=== PATIENT | male | born 1960 | race African-American/Black ===

== ENCOUNTER 2021-12-24 12:00 | Inpatient (IN) | payer OTHER ==
[2021-12-24 13:43] VITALS: BMI 25.1
[2021-12-24] MEDS ORDERED: BENZOCAINE/MENTHOL (CHLORASEPTIC ) LOZENGE MM PRN (14:42)
[2021-12-24] MEDS ORDERED: LOPERAMIDE HCL 2 MG CAPSULE PO PRN (14:42)
[2021-12-24] MEDS ORDERED: MAGNESIUM CITRATE 300 ML BOTTLE PO PRN (14:42)
[2021-12-24] MEDS ORDERED: ONDANSETRON *ODT* 4 MG TABLET SL PRN (14:42)
[2021-12-24] MEDS ORDERED: chlordiazePOXIDE HCL 25 MG CAPSULE PO PRN (14:42)
[2021-12-24] MEDS ORDERED: DICYCLOMINE HCL 10 MG CAPSULE PO PRN (14:42)
[2021-12-24] MEDS ORDERED: MAG HYDROX/AL HYDROX/SIMETH 30 ML UNIT-DOSE CUP PO PRN (14:42)
[2021-12-24] MEDS ORDERED: MAGNESIUM HYDROX 2400MG/30ML ORAL SUSPENSION 30 ML CUP PO PRN (14:42)
[2021-12-24] MEDS ORDERED: BISMUTH SUBSALICYLATE 262 MG/15 ML BTL PO PRN (14:42)
[2021-12-24] MEDS ORDERED: ACETAMINOPHEN 325 MG TABLET (FP) PO PRN ×2 (14:42)
[2021-12-24] MEDS: chlordiazePOXIDE HCL 25 MG CAPSULE PO SCH ×2 (18:32→22:26)
[2021-12-24] MEDS: NICOTINE 10 MG CARTRIDGE (INHALER) IH PRN ×2 (18:38→22:35)
[2021-12-24] MEDS: MELATONIN 5 MG TABLETS PO SCH (22:26)
[2021-12-24] MEDS: THIAMINE HCL 100 MG TABLET (FP) PO SCH (22:26)
[2021-12-25] MEDS: chlordiazePOXIDE HCL 25 MG CAPSULE PO SCH ×2 (06:29→10:12)
[2021-12-25] MEDS: IBUPROFEN 400 MG TABLET (FP) PO PRN (06:31)
[2021-12-25] MEDS: PRENATAL VITAMINS W/ FOLIC ACID TABLET (FP) PO SCH (10:12)
[2021-12-25] MEDS: METHOCARBAMOL 500 MG TABLET PO PRN (10:13)
[2021-12-25] MEDS: NICOTINE 10 MG CARTRIDGE (INHALER) IH PRN ×2 (10:15→18:01)
[2021-12-25 11:05] LABS: HEMATOCRIT 42.7 % (35.4-49); HEMOGLOBIN 14.2 GM/dL (11.7-16.9); MCH 29.5 pg (25.7-33.7); MCHC 33.3 g/dl (32.0-35.9); MEAN CELL VOLUME 88.4 fl (80-96); MEAN PLT VOLUME 9.7 fl (7.5-11.1); PLATELET COUNT 171 10^3/uL (134-434); RBC 4.84 M/mm3 (4.00-5.60); RDW 17.2 % (11.9-15.9); WHITE BLOOD COUNT 5.9 K/mm3 (4.0-10.0)
[2021-12-25 11:30] LABS: BLOOD UREA NITROGEN 12.1 mg/dL (7-18); CALCIUM 9.7 mg/dL (8.5-10.1)
[2021-12-25 11:31] LABS: ALBUMIN 4.4 g/dl (3.4-5.0)
[2021-12-25 11:34] LABS: BILIRUBIN,TOTAL 0.9 mg/dL (0.2-1)
[2021-12-25] MEDS ORDERED: LORazepam 1 MG TABLET PO PRN (15:34)
[2021-12-25] MEDS: LORazepam 2 MG TABLET PO SCH ×2 (17:57→22:18)
[2021-12-25] MEDS: MELATONIN 5 MG TABLETS PO SCH (22:18)
[2021-12-25] MEDS: THIAMINE HCL 100 MG TABLET (FP) PO SCH (22:18)
[2021-12-26] MEDS ORDERED: chlordiazePOXIDE HCL 25 MG CAPSULE PO SCH (05:00)
[2021-12-26] MEDS: LORazepam 2 MG TABLET PO SCH ×4 (05:32→22:15)
[2021-12-26] MEDS: PRENATAL VITAMINS W/ FOLIC ACID TABLET (FP) PO SCH (10:13)
[2021-12-26] MEDS: METHOCARBAMOL 500 MG TABLET PO PRN ×2 (10:13→17:55)
[2021-12-26] MEDS: IBUPROFEN 400 MG TABLET (FP) PO PRN (10:14)
[2021-12-26] MEDS: IBUPROFEN 600 MG TABLET (FP) PO PRN (17:55)
[2021-12-26] MEDS: NICOTINE 10 MG CARTRIDGE (INHALER) IH PRN (17:58)
[2021-12-26] MEDS: MELATONIN 5 MG TABLETS PO SCH (22:14)
[2021-12-26] MEDS: ATORVASTATIN CA 10 MG TABLET (FP) PO SCH (22:14)
[2021-12-26] MEDS: THIAMINE HCL 100 MG TABLET (FP) PO SCH (22:14)
[2021-12-27] MEDS ORDERED: chlordiazePOXIDE HCL 10 MG CAPSULE PO PRN
[2021-12-27] MEDS ORDERED: chlordiazePOXIDE HCL 10 MG CAPSULE PO SCH (05:00)
[2021-12-27] MEDS: LORazepam 1 MG TABLET PO SCH ×4 (06:02→23:58)
[2021-12-27] MEDS: PRENATAL VITAMINS W/ FOLIC ACID TABLET (FP) PO SCH (10:27)
[2021-12-27] MEDS: METHOCARBAMOL 500 MG TABLET PO PRN (10:27)
[2021-12-27] MEDS: NICOTINE 10 MG CARTRIDGE (INHALER) IH PRN ×2 (12:41→17:37)
[2021-12-27] MEDS: THIAMINE HCL 100 MG TABLET (FP) PO SCH (23:57)
[2021-12-27] MEDS: ATORVASTATIN CA 10 MG TABLET (FP) PO SCH (23:57)
[2021-12-27] MEDS: MELATONIN 5 MG TABLETS PO SCH (23:57)
[2021-12-28] MEDS ORDERED: LORazepam 0.5 MG TABLET PO PRN
[2021-12-28] MEDS ORDERED: chlordiazePOXIDE HCL 10 MG CAPSULE PO SCH (05:00)
[2021-12-28] MEDS: LORazepam 0.5 MG TABLET PO SCH ×4 (05:57→22:20)
[2021-12-28] MEDS: PRENATAL VITAMINS W/ FOLIC ACID TABLET (FP) PO SCH (10:39)
[2021-12-28] MEDS: METHOCARBAMOL 500 MG TABLET PO PRN (10:39)
[2021-12-28] MEDS: IBUPROFEN 600 MG TABLET (FP) PO PRN (10:40)
[2021-12-28] MEDS: NICOTINE 10 MG CARTRIDGE (INHALER) IH PRN ×2 (15:37→22:22)
[2021-12-28] MEDS: THIAMINE HCL 100 MG TABLET (FP) PO SCH (22:19)
[2021-12-28] MEDS: ATORVASTATIN CA 10 MG TABLET (FP) PO SCH (22:19)
[2021-12-28] MEDS: MELATONIN 5 MG TABLETS PO SCH (22:20)
[2021-12-29] MEDS ORDERED: LORazepam 0.5 MG TABLET PO ONE (05:00)
[2021-12-29] MEDS ORDERED: chlordiazePOXIDE HCL 10 MG CAPSULE PO ONE (05:00)
[2021-12-29] MEDS: PRENATAL VITAMINS W/ FOLIC ACID TABLET (FP) PO SCH (10:06)
[2021-12-29] MEDS: NICOTINE 10 MG CARTRIDGE (INHALER) IH PRN ×2 (10:23→22:16)
[2021-12-29] MEDS: THIAMINE HCL 100 MG TABLET (FP) PO SCH (22:16)
[2021-12-29] MEDS: MELATONIN 5 MG TABLETS PO SCH (22:16)
[2021-12-29] MEDS: ATORVASTATIN CA 10 MG TABLET (FP) PO SCH (22:16)
[2021-12-30 09:15] VITALS: BP 151/78; PULSE 73; TEMP 98.1
[2021-12-30] MEDS: PRENATAL VITAMINS W/ FOLIC ACID TABLET (FP) PO SCH (10:55)
== END 2021-12-30 11:00 | disposition home or self-care (01) | DRG 897 ==
LOC: YASAS 12:00 → Y6N 14:09
PROVIDERS: ADMIT Allergy & Immunology; ATTEND Surgery
PROC: HZ2ZZZZ Detoxification Services for Substance Abuse Treatment (ICD-10-PCS; principal; 2021-12-24)
DX: F10.230 Alcohol dependence with withdrawal, uncomplicated (principal); F17.290 Nicotine dependence, other tobacco product, uncomplicated; F10.282 Alcohol dependence with alcohol-induced sleep disorder; E78.5 Hyperlipidemia, unspecified; M54.50 Low back pain, unspecified; G89.29 Other chronic pain; R76.8 Other specified abnormal immunological findings in serum; R74.01 Elevation of levels of liver transaminase levels; R73.03 Prediabetes; Z86.19 Personal history of other infectious and parasitic diseases; Z91.410 Personal history of adult physical and sexual abuse
CPT/HCPCS: 36415; 80053; 84450; 85027; 86593; 86780; 87811; C9803-CS; U0003; U0005